=== PATIENT | male | born 1975 | race African-American/Black ===

== ENCOUNTER 2023-03-24 14:17 | Emergency (ER) | payer MEDICAID, OTHER ==
[~2023-03-24] VITALS: Ht 172.7 cm; Wt 75.0 kg
[~2023-03-24 14:17] MED LIST: BENZ2TAB65 PO; DIVA-18 PO; OMEP20CA14 PO; PROP20TA7 PO; RISP2 PO
[2023-03-24 14:28] VITALS: BP 140/89; PULSE 103; RESP 18; TEMP 98; O2SAT 97
== END 2023-03-24 14:52 | disposition home or self-care (01) ==
LOC: ER 14:17
DX: S61.216D Laceration without foreign body of right little finger without damage to nail, subsequent encounter (principal); F15.10 Other stimulant abuse, uncomplicated; X58.XXXD Exposure to other specified factors, subsequent encounter
CPT/HCPCS: 99281